=== PATIENT | female | born 1985 | race Caucasian/White ===

== ENCOUNTER 2020-03-31 00:58 | Emergency (ER) | payer OTHER ==
[~2020-03-31] VITALS: Ht 165.1 cm; Wt 72.6 kg
--- NOTE | 2020-03-31 01:08 | NUR ---
BIBSELF C/O MIDSTENAL CHEST PAIN RADIATING TO L UPPER EXT X1 DAY, pt aaox4, -sob. nad noted, vss, pending md ríos
--- NOTE | 2020-03-31 01:20 | NUR ---
BLOOD DRAWN AND SENT TO THE LAB.
[2020-03-31 02:19] LABS: HEMOGLOBIN 13.8 g/dL (11.5-14.8); MEAN CORPUSCULAR VOLUME 85 fL (82-100); WHITE BLOOD COUNT (AUTO) 4.7 K/uL (4.3-11.0)
[2020-03-31 02:46] LABS: BASOPHILS % (AUTO) 0.6 % (0.0-2.0); EOSINOPHILS % (AUTO) 3.9 % (0.0-6.0); HEMATOCRIT 39 % (33-45); LYMPHOCYTES # (AUTO) 1.7 /CMM (0.8-4.8); MEAN CORPUSCULAR HGB CONC 35 g/dl (31.0-36.0); MONOCYTES # (AUTO) 0.4 /CMM (0.1-1.30); MONOCYTES % (AUTO) 7.8 % (2.0-12.0); NEUTROPHILS # (AUTO) 2.5 /CMM (1.8-8.9); NEUTROPHILS % (AUTO) 52.7 % (43.0-81.0); PLATELET COUNT (AUTO) 276 /CMM (150-450); RED BLOOD CELL COUNT(AUTO) 4.61 MIL/uL (4.0-5.2)
[2020-03-31 02:47] LABS: CALCIUM, SERUM 8.9 mg/dL (8.5-10.1); CARBON DIOXIDE 26 mmol/L (21-32); CHLORIDE 103 mmol/L (98-107); CREATININE 0.8 mg/dL (0.6-1.3); GLUCOSE 124 mg/dL (74-106); POTASSIUM 3.5 mmol/L (3.5-5.1); SODIUM SERUM 139 mmol/L (136-145); UREA NITROGEN, BLOOD 12 mg/dL (7-18)
[2020-03-31 03:02] LABS: THYROID STIMULATING HORMONE 0.08 uIU/mL (0.358-3.74)
--- NOTE | 2020-03-31 04:07 | NUR ---
Patient discharged to home in stable condition. Written and verbal after care instructions given. Patient verbalizes understanding of instruction. IV removed. Catheter intact and site benign. Pressure and 4x4 applied to site. No bleeding noted.
[2020-03-31 04:10] VITALS: BP 130/75
== END 2020-03-31 04:10 | disposition home or self-care (01) ==
LOC: ER 01:03
DX: R07.89 Other chest pain (principal); F17.200 Nicotine dependence, unspecified, uncomplicated; E06.3 Autoimmune thyroiditis
CPT/HCPCS: 36415; 71045-TC; 80048-TC; 84439-TC; 84443-TC; 84484-TC; 84703-TC; 85025-TC; 85378-TC